=== PATIENT | female | born 1945 ===

== ENCOUNTER 2024-08-13 12:48 | Outpatient (CLI) | payer MEDICARE, SELFPAY ==
--- OUTSIDE RECORDS SUMMARY | 2024-08-13 13:41 | XMS_ITS | Referral Summary ---
Author Organization [facility] Address [address] [place] [id number] Care Team Providers Care Office Automation Technician Name Role Phone Ely Santo MD Primary Care Provider [phone] Encounters Date Type Department Care Team Description 08/10/2024 10:50 AM CDT Lab [facility] [address] [place] [address] Arrived 07/31/2024 Orders Only [facility] [address] [place] [id number] Gina German PA 07/30/2024 1:05 PM CDT Lab [facility] [address] [place] [address] 07/27/2024 Orders Only [facility] [address] [place] [address] Ely Santo MD 06/06/2024 Orders Only [facility] [address] [place] [address] Ely Santo MD from Last 3 Months Social History Tobacco Use Types Packs/Day Years Used Date Smoking Tobacco: Never Assessed Personal Safety Answer Date Recorded Getting School Help Needed Not on file 05/13 Comments Unknown Sex and Gender Information Value Date Recorded Sex Assigned at Not on file 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 Gender Identity Not on file Sexual Orientation Not on file Last Filed Vital Signs Vital Sign Reading Time Taken Comments Blood Pressure 110/62 12/10/2015 9:00 AM CDT Pulse 56 12/09/2016 1:45 PM CDT Temperature - - Respiratory Rate - - Oxygen Saturation 98% 12/09/2016 1:45 PM CDT Inhaled Oxygen Concentration - - Weight 74.4 kg (164 lb) 12/09/2016 1:45 PM CDT Height 162.6 cm (5' 4) 12/09/2016 1:45 PM CDT Body Mass Index 28.15 12/09/2016 1:45 PM CDT Plan of Treatment Not on file Procedures Procedure Name Priority Date/Time Associated Diagnosis Comments EGFR Routine 08/10/2024 11:22 AM CDT HEMOGLOBIN A1C Routine 08/10/2024 11:22 AM CDT VITAMIN B12 Routine 08/10/2024 11:22 AM CDT LIPID PANEL Routine 08/10/2024 11:22 AM CDT COMPREHENSIVE METABOLIC PANEL Routine 08/10/2024 11:22 AM CDT DIFFERENTIAL AUTO Routine 07/30/2024 1:3 0 PM CDT FERRITIN Routine 07/30/2024 1:30 PM CDT IRON PROFILE W/ IBC Routine 07/30/2024 1 :30 PM CDT FOLATE Routine 07/30/2024 1:30 PM CDT VITAMIN B12 Routine 07/30/2024 1:30 PM CDT CBC WITH AUTO DIFFERENTIAL Routine 07/30/2024 1:30 PM CDT from Last 3 Months Results * (ABNORMAL) eGFR (08/10/2024 11:22 AM CDT) eGFR 49(L) >=60 mL/min/1. 73 m2 Comment: Interpretive Data Reference Interval Normal >/= 90 mL/min/1.73m2 Mildly decreased* 60 - 89 mL/min/1.73m2 Mildly to moderately decreased 45 - 59 mL/min/1.73m2 Moderately to severely decreased 30 - 44 mL/min/1.73m2 Severely decreased 15 - 29 mL/min/1.73m2 Kidney Failure < 15 mL/min/1.73m2 *Relative to young adult level Estimated glomerular filtration rate is determined by the 2020 CKD-EPI equation recommended by the National Kidney Foundation (A Unifying Approach to GFR Estimation: Recommendations of the NKF-ASK Task Force on Reassessing the Inclusion of Race in Diagnosing Kidney Disease, JASN 2020). The CKD-EPI equation should not be used for patients with unstable renal function and has not been validated in children and those over 70. Current interpretive data was last reviewed 2020. Blood 08/10/2024 11:2 2 AM CDT 08/10/2024 11:40 AM CDT Gina DIXON LAB BLOOD ORDERABLES Final Resul t Performing Organization Address [facility] de Phone Number [address] [place] [place] [address] * (ABNORMAL) Hemoglobin A1c (08/10/2024 11:22 AM CDT) [facility] Hgb A1C 5.9(H) 4.0 - 5.6 % Estimated Average Glucose 123 mg/dL [facility] Comment: The ADA recommends reporting an estimated Average Glucose (eAG) with all Hemoglobin A1c results using the equation derived from a study of 507 normal and diabetic adults. Minority populations were underrepresented and children were not included. (Diabetes Care 31:3569-1596, 2008). The eAG is not equivalent to a fasting glucose. Blood 08/10/2024 11:2 2 AM CDT 08/10/2024 11:40 AM CDT Gina DIXON LAB BLOOD ORDERABLES Final Resul t Performing Organization Address [facility] Co de Phone Number [address] [place] [address] * Vitamin B12 (08/10/2024 11:22 AM CDT) Vitamin B12 640 230 - 1,250 pg/mL Blood 08/10/2024 11:2 2 AM CDT 08/10/2024 11:40 AM CDT us Gina DIXON LAB BLOOD ORDERABLES Final Resul t [facility] [address] [facility] [place] [address] * Lipid panel (08/10/2024 11:22 AM CDT) Cholesterol 138 30 - 199 mg/dL Comment: Interpretive Data Ages < or = 19 years Acceptable: <170 mg/dL Borderline high: 170-199 mg/dL High: >or= 200 mg/dL Ages > or = 20 years Desirable: <200 mg/dL Borderline high: 200-239 mg/dL High: >or= 240 mg/dL Literature References: 1. Expert Panel on Integrated Guidelines for Cardiovascular Health and Risk Reduction in Children and Adolescents. Pediatrics 2011;128:S213 2. NCEP Expert Panel. Circulation 2004;110:227 Current Interpretive Data was last revised on 2017. Triglycerides 82 <=149 mg/dL [facility] Comment: Interpretive Data Ages < or = 9 years Acceptable: <75 mg/dL Borderline high: 75-99 mg/dL High: >or= 100 mg/dL Ages 10 to 20 years Acceptable: <90 mg/dL Borderline high: 90-129 mg/dL High: >or= 130 mg/dL Ages > or = 20 years Desirable: <150 mg/dL Borderline high: 150-199 mg/dL High: 200-499 mg/dL Very high: >or= 499 mg/dL Literature References: 1. Expert Panel on Integrated Guidelines for Cardiovascular Health and Risk Reduction in Children and Adolescents. Pediatrics 2011;128:S213 2. NCEP Expert Panel. Circulation 2004;110:227 Current Interpretive Data was last revised on 2017. HDL 52 >=40 mg/dL [facility] MONROY Comment: Interpretive Data Ages < or = 19 years Acceptable: >45 mg/dL Borderline low: 40-45 mg/dL Low: <40 mg/dL Ages > or = 20 years Desirable: >or= 60 mg/dL Low: <40 mg/dL Literature References: 1. Expert Panel on Integrated Guidelines for Cardiovascular Health and Risk Reduction in Children and Adolescents. Pediatrics 2011;128:S213 2. NCEP Expert Panel. Circulation 2004;110:227 Current Interpretive Data was last revised on 2017. LDL, calculated 70 <=129 mg/dL [facility] MONROY Comment: Interpretive Data Ages < or = 19 years Acceptable: <110 mg/dL Borderline high: 110-129 mg/dL High: >or= 130 mg/dL Ages > or = 20 years Optimal: <100 mg/dL Near optimal: 100-129 mg/dL Borderline high: 130-159 mg/dL High: >160 mg/dL Calculated using the Agusto LDL-C estimating equation. This equation was implemented on 2023. Prior to this date LDL-C was estimated using the Friedewald equation. Literature References: 1. Expert Panel on Integrated Guidelines for Cardiovascular Health and Risk Reduction in Children and Adolescents. Pediatrics 2011;128:S213 2. NCEP Expert Panel. Circulation 2004;110:227 3. Agusto Cortez al. TOMASA Cardiol. 2019June 28;5(5):540-548. doi: 10.1001/jamacardio.2020.0013 Current Interpretive Data was last revised on 2023. Non-HDL Cholesterol 86 mg/dL [facility] MONROY Comment: Interpretive Data Ages < or = 19 years Acceptable: <120 mg/dL Borderline high: 120-144 mg/dL High: >145 mg/dL Ages > or = 20 years When triglycerides are >200 mg/dL, Non-HDL cholesterol is a secondary target of therapy with treatment goals that are 30 mg/dL greater than the LDL cholesterol target. Literature References: 1. Expert Panel on Integrated Guidelines for Cardiovascular Health and Risk Reduction in Children and Adolescents. Pediatrics 2011;128:S213 2. NCEP Expert Panel. Circulation 2004;110:227 Current Interpretive Data was last revised on 2017. Chol/HDL ratio 3 [facility]LIN MONROY Blood 08/10/2024 11:2 2 AM CDT 08/10/2024 11:40 AM CDT Gina DIXON LAB BLOOD ORDERABLES Final Resul t Performing Organization Address City/State/[facility] Co de Phone Number [facility] [address] [facility] [employer] [place] [address] * (ABNORMAL) Comprehensive metabolic panel (08/10/2024 11:22 AM CDT) Sodium 140 135 - 145 mmol/L Potassium, pl 4.5 3.3 - 4.9 mmol/L [facility] Chloride 106 97 - 110 mmol/L [facility] CO2 20(L) 22 - 32 mmol/L [facility] Anion gap 14 2 - 15 mmol/L [facility] BUN 23 6 - 25 mg/dL [facility] Creatinine 1.15(H) 0.60 - 1.10 mg/dL [facility] Glucose 98 70 - 199 mg/dL [facility] Comment: Interpretive Data Fasting glucose >/= 126 mg/dl is diagnostic for diabetes. Fasting is defined as no caloric intake for at least 8 hours. Fasting glucose between 100 mg/dl to 125 mg/dl is diagnostic of prediabetes. In a patient with classic symptoms of hyperglycemia or hyperglycemic crisis, a random glucose >/= 200 mg/dl is diagnostic for diabetes. In the absence of unequivocal hyperglycemia, results should be confirmed by repeat testing. The classification and Diagnosis of Diabetes Diabetes Care 202; 46: S19-S40. Current interpretive data was last revised 2022. Calcium 9.5 8.5 - 10.3 mg/dL [facility] Bilirubin, total 0.6 0.1 - 1.2 mg/dL [facility] Protein, pl 6.9 6.5 - 8.5 g/dL [facility] Albumin 4.1 3.5 - 5.0 g/dL [facility] Alk phos 93 40 - 130 Units/L [facility] ALT 22 7 - 45 Units/L [facility] AST 29 10 - 45 Units/L [facility] Blood 08/10/2024 11:2 2 AM CDT 08/10/2024 11:40 AM CDT us Gina DIXON LAB BLOOD ORDERABLES Final Resul t Performing Organization Address [facility]/ZIP Co de Phone Number [facility] [address] [facility] [employer] [place] [address] * (ABNORMAL) Differential, auto (07/30/2024 1:30 PM CDT) Neutrophil abs 7.71(H) 1.50 - 6.50 K/cumm Imm gran abs 0.04 0.00 - 0.10 K/cumm [facility] Lymphocyte abs 2.57 0.80 - 3.30 K/cumm [facility] Monocyte abs 0.72 0.20 - 0.80 K/cumm [facility] Eosinophil abs 0.15 0.00 - 0.50 K/cumm [facility] Basophil abs 0.07 0.00 - 0.10 K/cumm [facility] Neutrophil pct 68.5 % [facility] Comment: Interpretive Data Percent cell count reference ranges are not reported, since discordance with absolute values may lead to misinterpretation of CBC data. Current Interpretive Data was last revised on 2017. Imm gran pct 0.4 % [facility] Comment: Interpretive Data Percent cell count reference ranges are not reported, since discordance with absolute values may lead to misinterpretation of CBC data. Current Interpretive Data was last revised on 2017. Lymphocyte pct 22.8 % [facility] Comment: Interpretive Data Percent cell count reference ranges are not reported, since discordance with absolute values may lead to misinterpretation of CBC data. Current Interpretive Data was last revised on 2017. Monocyte pct 6.4 % [facility] Comment: Interpretive Data Percent cell count reference ranges are not reported, since discordance with absolute values may lead to misinterpretation of CBC data. Current Interpretive Data was last revised on 2017. Eosinophil pct 1.3 % [facility] Comment: Interpretive Data Percent cell count reference ranges are not reported, since discordance with absolute values may lead to misinterpretation of CBC data. Current Interpretive Data was last revised on 2017. Basophil pct 0.6 % [facility] Comment: Interpretive Data Percent cell count reference ranges are not reported, since discordance with absolute values may lead to misinterpretation of CBC data. Current Interpretive Data was last revised on 2017. Blood 07/30/2024 1:30 PM CDT 07/30/2024 1:59 PM CDT Ely Santo MD LAB BLOOD ORDERABLES Final Resul t Performing Organization Address City/[facility]/ZIP Co de Phone Number [address] [place] [address] * Iron profile w/ IBC (07/30/2024 1:30 PM CDT) Pathologist [facility] Iron 83 35 - 145 mcg/dL TIBC 303 250 - 400 mcg/dL [facility] Transferrin saturation 27 20 - 50 % [facility] Blood 07/30/2024 1:30 PM CDT 07/30/2024 1:59 PM CDT Ely Santo MD LAB BLOOD ORDERABLES Final Resul t Performing Organization Address [facility] de Phone Number [address] [place] [address] * (ABNORMAL) CBC with auto differential (07/30/2024 1:30 PM CDT) Pathologist [facility] WBC 11.26(H) 3.80 - 9.90 K/cumm Hgb 10.5(L) 11.9 - 15.5 g/dL [facility] Hct 32.4(L) 35.6 - 45.5 % [facility] Plt 207 150 - 400 K/cumm [facility] MPV 11.5 9.1 - 12.3 fL [facility] RBC 3.51(L) 3.90 - 5.20 M/cumm [facility] MCV 92.3 81.3 - 96.4 fL [facility] MCH 29.9 27.1 - 33.3 pg [facility] MCHC 32.4 32.3 - 35.7 g/dL [facility] RDW CV 14.5 11.1 - 14.9 % [facility] RDW SD 48.7(H) 35.7 - 48.1 fL [facility] NRBC abs 0.00 0.00 - 0.01 K/cumm [facility] Blood 07/30/2024 1:30 PM CDT 07/30/2024 1:59 PM CDT Ely Santo MD LAB BLOOD ORDERABLES Final Resul t Performing Organization Address City/[facility] Co de Phone Number [address] [place] [address] * Folate (07/30/2024 1:30 PM CDT) Folic acid >20.0 >=5.0 ng/mL Blood 07/30/2024 1:30 PM CDT 07/30/2024 1:59 PM CDT Ely Santo MD LAB BLOOD ORDERABLES Final Resul t Performing Organization Address [facility] de Phone Number [address] [place] [address] * (ABNORMAL) Ferritin (07/30/2024 1:30 PM CDT) Ferritin 444(H) 15 - 150 ng/mL Blood 07/30/2024 1:30 PM CDT 07/30/2024 1:59 PM CDT Result [facility] Ely Santo MD LAB BLOOD ORDERABLES Final Resul t Performing Organization Address [facility] Co de Phone Number [address] [place] [address] * Vitamin B12 (07/30/2024 1:30 PM CDT) Vitamin B12 713 230 - 1,250 pg/mL Blood 07/30/2024 1:30 PM CDT 07/30/2024 1:59 PM CDT Ely Santo MD LAB BLOOD ORDERABLES Final Resul t Performing Organization Address City/[facility] Co de Phone Number [address] [place] [address] from Last 3 Months [facility] Care [facility] Office Automation Technician Relationship Specialty Start Date End Date Ely Santo MD [address] [phone] PCP - General 05/16/20
--- OUTSIDE RECORDS SUMMARY | 2024-08-13 13:41 | XMS_ITS | Encounter Summary ---
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 Historical Provider [facility] Final Result documented in this encounter Visit Diagnoses Not on filedocumented in this encounter Care Teams Stave Block Roller Relationship Specialty Start Date End Date Ely Santo MD [address] [place] [address] PCP - General 05/16/20 documented as of this encounter
--- OUTSIDE RECORDS SUMMARY | 2024-08-13 13:41 | XMS_ITS | Clinical Summary ---
Author Organization [facility] Address [address] [place] [id number] Care Team Providers Care Planting Material Remover Name Role Phone Ely Santo MD Primary Care Provider [phone] Encounters Date Type Department Care Team Description 08/10/2024 10:[address] [facility] [address] [place] [id number] Arrived 07/31/[address] [facility] [address] [place] [id number] Gina German PA 07/30/2024 1:[address] [facility] [address] [place] [id number] 07/27/[address] [facility] [address] [place] [id number] Ely Santo MD 06/06/[address] 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 Minority populations were underrepresented and children were not included. (Diabetes Care 31:2070-8167, 2008). The eAG is not equivalent to a fasting glucose. Blood 08/10/2024 11:2 2 AM CDT 08/10/2024 11:40 AM CDT Gina DIXON LAB BLOOD ORDERABLES Final Resul t Performing Organization Address [facility] Co de Phone Number [address] [place] [address] * Vitamin B12 (08/10/2024 11:22 AM CDT) Vitamin B12 640 230 - 1,250 pg/mL Blood 08/10/2024 11:2 2 AM CDT 08/10/2024 11:40 AM CDT us Gina DIXON LAB BLOOD ORDERABLES Final Resul t [facility] [address] [facility] [place] [address] * Lipid panel (08/10/2024 11:22 AM CDT) [...] ORDERABLES Final Resul t Performing Organization Address City/State/[facility] Co de Phone Number [facility] [address] [facility] [place] [place] [address] * (ABNORMAL) Comprehensive metabolic panel (08/10/2024 11:22 AM CDT) Sodium 140 135 - 145 mmol/L Potassium, pl 4.5 3.3 - 4.9 mmol/L [facility] Chloride 106 97 - 110 mmol/L [facility] CO2 20(L) 22 - 32 mmol/L [facility] Anion gap 14 2 - 15 mmol/L [facility] BUN 23 6 - 25 mg/dL [facility] Creatinine 1.15(H) 0.60 - 1.10 mg/dL [facility] Glucose 98 70 - 199 mg/dL [facility] Comment: Interpretive Data Fasting glucose >/= 126 [...] 2022. Calcium 9.5 8.5 - 10.3 mg/dL [facility] Bilirubin, total 0.6 0.1 - 1.2 mg/dL [facility] Protein, pl 6.9 6.5 - 8.5 g/dL [facility] Albumin 4.1 3.5 - 5.0 g/dL [facility] Alk phos 93 40 - 130 Units/L [facility] ALT 22 7 - 45 Units/L [facility] AST 29 10 - 45 Units/L [facility] Blood 08/10/2024 11:2 2 AM CDT 08/10/2024 11:40 AM CDT us Gina DIXON LAB BLOOD ORDERABLES Final Resul t Performing Organization Address [facility]/ZIP Co de Phone Number [facility] [address] [facility] [place] [place] [address] * (ABNORMAL) Differential, auto (07/30/2024 1:30 PM CDT) Neutrophil abs 7.71(H) 1.50 - 6.50 K/cumm Imm gran abs 0.04 0.00 - 0.10 K/cumm [facility] Lymphocyte abs 2.57 0.80 - 3.30 K/cumm [facility] Monocyte abs 0.72 0.20 - 0.80 K/cumm [facility] Eosinophil abs 0.15 0.00 - 0.50 K/cumm [facility] Basophil abs 0.07 0.00 - 0.10 K/cumm [facility] Neutrophil pct 68.5 % [facility] Comment: Interpretive Data Percent cell count reference ranges are not reported, since discordance with absolute values may lead to misinterpretation of CBC data. Current Interpretive Data was last revised on 2017. Imm gran pct 0.4 % [facility] Comment: Interpretive Data Percent cell count reference ranges are not reported, since discordance with absolute values may lead to misinterpretation of CBC data. Current Interpretive Data was last revised on 2017. Lymphocyte pct 22.8 % [facility] Comment: Interpretive Data Percent cell count reference ranges are not reported, since discordance with absolute values may lead to misinterpretation of CBC data. Current Interpretive Data was last revised on 2017. Monocyte pct 6.4 % [facility] Comment: Interpretive Data Percent cell count reference ranges are not reported, since discordance with absolute values may lead to misinterpretation of CBC data. Current Interpretive Data was last revised on 2017. Eosinophil pct 1.3 % [facility] Comment: Interpretive Data Percent cell count reference ranges are not reported, since discordance with absolute values may lead to misinterpretation of CBC data. Current Interpretive Data was last revised on 2017. Basophil pct 0.6 % [facility] Comment: Interpretive Data Percent cell count reference ranges are not reported, since discordance with absolute values may lead to misinterpretation of CBC data. Current Interpretive Data was last revised on 2017. Blood 07/30/2024 1:30 PM CDT 07/30/2024 1:59 PM CDT Ely Santo MD LAB BLOOD ORDERABLES Final Resul t Performing Organization Address City/[facility]/ZIP Co de Phone Number [address] [place] [address] * Iron profile w/ IBC (07/30/2024 1:30 PM CDT) Pathologist [facility] Iron 83 35 - 145 mcg/dL TIBC 303 250 - 400 mcg/dL [facility] Transferrin saturation 27 20 - 50 % [facility] Blood 07/30/2024 1:30 PM CDT 07/30/2024 1:59 PM CDT Ely Santo MD LAB BLOOD ORDERABLES Final Resul t Performing Organization Address [facility] de Phone Number [address] [place] [address] * (ABNORMAL) CBC with auto differential (07/30/2024 1:30 PM CDT) Pathologist [facility] WBC 11.26(H) 3.80 - 9.90 K/cumm Hgb 10.5(L) 11.9 - 15.5 g/dL [facility] Hct 32.4(L) 35.6 - 45.5 % [facility] Plt 207 150 - 400 K/cumm [facility] MPV 11.5 9.1 - 12.3 fL [facility] RBC 3.51(L) 3.90 - 5.20 M/cumm [facility] MCV 92.3 81.3 - 96.4 fL [facility] MCH 29.9 27.1 - 33.3 pg [facility] MCHC 32.4 32.3 - 35.7 g/dL [facility] RDW CV 14.5 11.1 - 14.9 % [facility] RDW SD 48.7(H) 35.7 - 48.1 fL [facility] NRBC abs 0.00 0.00 - 0.01 K/cumm [facility] Blood 07/30/2024 1:30 PM CDT 07/30/2024 1:59 PM CDT Ely Santo MD LAB BLOOD ORDERABLES Final Resul t Performing Organization Address City/[facility] Co de Phone Number [address] [place] [address] * Folate (07/30/2024 1:30 PM CDT) Folic acid >20.0 >=5.0 ng/mL Blood 07/30/2024 1:30 PM CDT 07/30/2024 1:59 PM CDT Ely Santo MD LAB BLOOD ORDERABLES Final Resul t Performing Organization Address [facility] de Phone Number [address] [place] [address] * (ABNORMAL) Ferritin (07/30/2024 1:30 PM CDT) Ferritin 444(H) 15 - 150 ng/mL Blood 07/30/2024 1:30 PM CDT 07/30/2024 1:59 PM CDT Result [facility] Ely Santo MD LAB BLOOD ORDERABLES Final Resul t Performing Organization Address [facility] Co de Phone Number [address] [place] [address] * Vitamin B12 (07/30/2024 1:30 PM CDT) Vitamin B12 713 230 - 1,250 pg/mL Blood 07/30/2024 1:30 PM CDT 07/30/2024 1:59 PM CDT Ely Santo MD LAB BLOOD ORDERABLES Final Resul t Performing Organization Address City/[facility] Co de Phone Number [address] [place] [address] from Last 3 Months Insurance [facility] [facility] Care Teams Planting Material Remover Relationship Specialty Start Date End Date Ely Santo MD [address] [id number] PCP - General 05/16/20
--- OUTSIDE RECORDS SUMMARY | 2024-08-13 13:41 | XMS_ITS | Data Portability ---
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 Plan of Treatment Reminders Order Date Submit Date Provider Last Modified By Organization Details Last Modified Time Details Appointments ANY 15 2024 02:30P Davon Butler MD Not available Not available Not available MEDICARE WELLNESS VISIT 2024 10:30A Davon Butler MD Not available Not available Not available Lab hemoglob in A1c, QN, blood 2024 025 [facility] [place], [address], 07/31/2024 11:45:25 lipid panel, serum 2024 025 [facility] (Outpatient Labs), [place], [address], 07/31/2024 11:45:26 urinalys is complete , reflex culture 2024 025 [facility] (Outpatient Labs), [place], [address], 07/31/2024 11:45:26 fecal occult blood, immunoas say, stool 2024 025 [facility] (Outpatient [facility]), [place], [address], 07/31/2024 11:45:26 vitamin B12 + folate, serum or blood 2024 025 [facility] (Outpatient Labs), [address] [place] [address] , [place], [address], 07/31/2024 11:45:26 CMP, serum or plasma 2024 025 [facility] (Outpatient Labs), [address] [place] [address] , [place], [address], 08/10/2024 14:03:54 CBC w/ auto diff 2024 025 [facility], [address], [place], [address], 06/09/2024 04:17:59 vitamin B12 + folate, serum or blood 2024 025 [facility], [address], [address], [place], [address], 06/09/2024 04:18:00 iron + TIBC + ferritin , serum 2024 025 [facility], [address], [address], [place], [address], 06/09/2024 04:17:57 HbA1c (hemoglo bin A1c), blood 2023 024 [facility], [address], [place], [address], 02/17/2024 09:12:15 lipid panel, serum 2023 024 [facility], [address] [facility] [address], [place], [address], 02/17/2024 09:12:12 CMP, serum or plasma 2023 024 [facility], [address], [place], [address], 02/17/2024 09:12:14 CBC 2023 024 [facility], [address], [address], [place], [address], 02/17/2024 09:12:16 CMP, serum or plasma 2023 024 [facility], [address] [place] [address] [place], [address], 02/16/2024 13:11:32 CBC 2023 024 [facility], [address] [place] [address] [place], [address], 02/16/2024 13:11:32 lipid panel, serum 2023 024 [facility] (Outpatient Labs), [address] [place] [address] [place], [address], 07/28/2023 09:56:23 lipid panel, serum 2023 024 [facility], [address] [place] [address] [place], [address], 02/16/2024 13:11:[address] referral 2024 025 [facility], [address], [place], [address], 08/03/2024 11:17:01 oral surgery/ dentist referral 2024 025 [facility], [address] [facility], [address], [place], [address], 08/01/2024 11:17:[address] referral 2024 025 roverto Guadalupe MD, [address], [place], [address], 08/01/2024 11:17:28 audiolog ist referral 2024 025 [facility] (Audiology), [address], [place], [address], 08/01/2024 11:17:28 Procedures None recorded . Surgeries None recorded . Imaging None recorded . Medication Orders alprazol am 0.25 mg tablet 2024 025 [facility] 1418, [address], [address], 08/07/2024 05:02:15 ramipril 10 mg capsule 2024 025 [facility] 1418, [address], [address], 03/14/2024 11:55:30 Patient TargetsNo targets recorded. 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 Referral for Anemia Referring Physician: [facility], Encounter Date: 07/31/2024 Black Belt Referral for Hea ring difficulty Referring Physician: [facility], Encounter Date: 07/31/2024 Oral Surgery/dentist Referra l for Anomaly of tooth position Referring Physician: [facility], Encounter Date: 07/31/2024 Bridge Painter Referral for Nail deformity Referring Physician: Gina German [facility], Encounter Date: 07/31/2024 Results Created Date Observation Date Name Description Value Unit Range Abnormal Flag Note LastModifiedBy Organization Detail LastModifiedTime 02/16/20 24 02/17/2024 LIPID PANEL cholesterol, total 189 mg/dL 100-19 9 Not Available [facility] ([facility]) [address] [place], [address], 02/17/2024 09:12:12 02/16/20 24 02/17/2024 LIPID PANEL triglyceride s 61 mg/dL 0-149 Not Available [facility] ([facility]) [address] [place], [address], 02/17/2024 09:12:12 02/16/20 24 02/17/2024 LIPID PANEL HDL cholesterol 58 mg/dL >39 Not Available [facility] ([facility]) [address] [place], [address], 02/17/2024 09:12:12 02/16/20 24 02/17/2024 LIPID PANEL VLDL cholesterol dale 11 mg/dL 5-40 Not Available [facility] ([facility]) [address] [place], [address], 02/17/2024 09:12:12 02/16/20 24 02/17/2024 LIPID PANEL LDL chol calc ([facility]) 120 mg/dL 0-99 above high normal Not Available [facility] ([facility]) [address] [place], [address], 02/17/2024 09:12:12 02/16/20 24 02/17/2024 COMP. METAB OLIC PANEL (14) glucose 87 mg/dL 70-99 Not Available [facility] ([facility]) [address] [place], [address], 02/17/2024 09:12:13 02/16/20 24 02/17/2024 COMP. METAB OLIC PANEL (14) BUN 15 mg/dL 8-27 Not Available [facility] ([facility]) [address] [facility], [place], [address], 02/17/2024 09:12:13 02/16/20 24 02/17/2024 COMP. METAB OLIC PANEL (14) creatinine 0.96 mg/dL 0.57-1 .00 Not Available [facility] ([facility]) [address] [facility], [place], [address], 02/17/2024 09:12:13 02/16/20 24 02/17/2024 COMP. METAB OLIC PANEL (14) eGFR 61 mL/mi n/1.7 3 >59 Not Available [facility] ([facility]) [address] [facility], [place], [address], 02/17/2024 09:12:13 02/16/20 24 02/17/2024 COMP. METAB OLIC PANEL (14) BUN/creatini ne ratio 16 12-28 Not Available [facility] ([facility]) [address] [facility], [place], [address], 02/17/2024 09:12:13 02/16/20 24 02/17/2024 COMP. METAB OLIC PANEL (14) sodium 142 mmol/ L 134-14 4 Not Available [facility] ([facility]) [address] [facility], [place], [address], 02/17/2024 09:12:13 02/16/20 24 02/17/2024 COMP. METAB OLIC PANEL (14) potassium 4.0 mmol/ L 3.5-5. 2 Not Available [facility] ([facility]) [address] [facility], [place], [address], 02/17/2024 09:12:13 02/16/20 24 02/17/2024 COMP. METAB OLIC PANEL (14) chloride 105 mmol/ L 96-106 Not Available [facility] ([facility]) [address] [facility] [place], [address], 02/17/2024 09:12:13 02/16/20 24 02/17/2024 COMP. METAB OLIC PANEL (14) carbon dioxide, total 23 mmol/ L 20-29 Not Available [facility] ([facility]) [address] [facility] [place], [address], 02/17/2024 09:12:13 02/16/20 24 02/17/2024 COMP. METAB OLIC PANEL (14) calcium 9.6 mg/dL 8.7-10 .3 Not Available [facility] ([facility]) [address] [facility] [place], [address], 02/17/2024 09:12:13 02/16/20 24 02/17/2024 COMP. METAB OLIC PANEL (14) protein, total 6.3 g/dL 6.0-8. 5 Not Available [facility] ([facility]) [address] [facility] [place], [address], 02/17/2024 09:12:13 02/16/20 24 02/17/2024 COMP. METAB OLIC PANEL (14) albumin 4.0 g/dL 3.8-4. 8 Not Available [facility] ([facility]) [address] [facility] [place], [address], 02/17/2024 09:12:13 02/16/20 24 02/17/2024 COMP. METAB OLIC PANEL (14) globulin, total 2.3 g/dL 1.5-4. 5 Not Available [facility] ([facility]) [address] [facility] [place], [address], 02/17/2024 09:12:13 02/16/20 24 02/17/2024 COMP. METAB OLIC PANEL (14) bilirubin, total 0.6 mg/dL 0.0-1. 2 Not Available [facility] ([facility]) [address] [facility], [place], [address], 02/17/2024 09:12:13 02/16/20 24 02/17/2024 COMP. METAB OLIC PANEL (14) alkaline phosphatase 92 IU/L 44-121 Not Available [facility] ([facility]) [address] [place], [address], 02/17/2024 09:12:13 02/16/20 24 02/17/2024 COMP. METAB OLIC PANEL (14) AST (SGOT) 22 IU/L 0-40 Not Available [facility] ([facility]) [address] [facility], [place], [address], 02/17/2024 09:12:13 02/16/20 24 02/17/2024 COMP. METAB OLIC PANEL (14) ALT (SGPT) 12 IU/L 0-32 Not Available [facility] ([facility]) [address] [facility], [place], [address], 02/17/2024 09:12:13 02/16/20 24 02/17/2024 HEMOG LOBIN A1C hemoglobin A1C 5.9 % 4.8-5. 6 above high normal Predi abete s: 5.7 - 6.4 Diabe frank: >6.4 Glyce eileen contr ol for adult s with diabe frank: <7.0 Not Available [facility] ([facility]) [address] [place], [address], 02/17/2024 09:12:15 02/16/20 24 02/17/2024 CBC, PLATE LET, NO DIFFE RENTI AL WBC 6.8 x10e3 /uL 3.4-10 .8 Not Available [facility] ([facility]) [address] [place], [address], 02/17/2024 09:12:16 02/16/20 24 02/17/2024 CBC, PLATE LET, NO DIFFE RENTI AL RBC 3.52 x10e6 /uL 3.77-5 .28 below low normal Not Available [facility] ([facility]) [address] [place], [address], 02/17/2024 09:12:16 02/16/20 24 02/17/2024 CBC, PLATE LET, NO DIFFE RENTI AL hemoglobin 10.8 g/dL 11.1-1 5.9 below low normal Not Available [facility] ([facility]) [address] [place], [address], 02/17/2024 09:12:16 02/16/20 24 02/17/2024 CBC, PLATE LET, NO DIFFE RENTI AL hematocrit 33.0 % 34.0-4 6.6 below low normal Not Available [facility] ([facility]) [address] [place], [address], 02/17/2024 09:12:16 02/16/20 24 02/17/2024 CBC, PLATE LET, NO DIFFE RENTI AL MCV 94 fL 79-97 Not Available [facility] ([facility]) [address] [place], [address], 02/17/2024 09:12:16 02/16/20 24 02/17/2024 CBC, PLATE LET, NO DIFFE RENTI AL MCH 30.7 pg 26.6-3 3.0 Not Available [facility] ([facility]) [address] [place], [address], 02/17/2024 09:12:16 02/16/20 24 02/17/2024 CBC, PLATE LET, NO DIFFE RENTI AL MCHC 32.7 g/dL 31.5-3 5.7 Not Available [facility] ([facility]) [address] [place], [address], 02/17/2024 09:12:16 02/16/20 24 02/17/2024 CBC, PLATE LET, NO DIFFE RENTI AL RDW 13.0 % 11.7-1 5.4 Not Available [facility] ([facility]) [address] [facility], [place], [address], 02/17/2024 09:12:16 02/16/20 24 02/17/2024 CBC, PLATE LET, NO DIFFE RENTI AL platelets 213 x10e3 /uL 150-45 0 Not Available [facility] ([facility]) [address] [facility], [place], [address], 02/17/2024 09:12:16 06/07/19 25 06/09/2024 IRON, TIBC AND MARIANELA TIN PANEL iron, total 79 mcg/d L 45-160 normal Not Available [address], [address], 06/09/2024 04:17:57 06/07/19 25 06/09/2024 IRON, TIBC AND MARIANELA TIN PANEL iron binding capacity 326 mcg/d L_(ca lc) 250-45 0 normal Not Available [address], [address], 06/09/2024 04:17:57 06/07/19 25 06/09/2024 IRON, TIBC AND MARIANELA TIN PANEL % saturation 24 %_(ca lc) 16-45 normal Not Available [address], [address], 06/09/2024 04:17:57 06/07/19 25 06/09/2024 IRON, TIBC AND MARIAENLA TIN PANEL ferritin 216 NG/mL 16-288 normal Not Available [address], [address], 06/09/2024 04:17:57 06/07/19 25 06/09/2024 CBC (INCL UDES DIFF/ PLT) white blood cell count 8.8 thous and/u L 3.8-10 .8 normal Not Available [facility] [address], [address], 06/09/2024 04:17:58 06/07/1906/09/2024 CBC (INCL UDES DIFF/ PLT) red blood cell count 3.60 concepción on/uL 3.80-5 .10 low Not Available [address], [address], 06/09/2024 04:17:58 06/07/19 25 06/09/2024 CBC (INCL UDES DIFF/ PLT) hemoglobin 11.0 g/dL 11.7-1 5.5 low Not Available [address], [address], 06/09/2024 04:17:58 06/07/1906/09/2024 CBC (INCL UDES DIFF/ PLT) hematocrit 34.9 % 35.0-4 5.0 low Not Available [address], [address], 06/09/2024 04:17:58 06/07/1906/09/2024 CBC (INCL UDES DIFF/ PLT) MCV 96.9 fL 80.0-1 00.0 normal Not Available [address], [address], 06/09/2024 04:17:58 06/07/1906/09/2024 CBC (INCL UDES DIFF/ PLT) MCH 30.6 pg 27.0-3 3.0 normal Not Available [facility] [address], [address], 06/09/2024 04:17:58 06/07/1906/09/2024 CBC (INCL UDES DIFF/ PLT) MCHC 31.5 g/dL 32.0-3 6.0 low For adult s, a sligh t decre ase in the calcu lated MCHC value (in the range of 30 to 32 g/dL) is most likel y not clini aiden signi bertin t; lorenzo er, it shoul d be inter prete d with cauti on in corre latio n with other red cell asa eters and the patie nt's clini dale condi tion. Not Available [facility] [address], [address], 06/09/2024 04:17:58 06/07/19 25 06/09/2024 CBC (INCL UDES DIFF/ PLT) RDW 13.1 % 11.0-1 5.0 normal Not Available [facility] [address], [address], 06/09/2024 04:17:58 06/07/19 25 06/09/2024 CBC (INCL UDES DIFF/ PLT) platelet count 206 thous and/u L 140-40 0 normal Not Available [facility] [address], [address], 06/09/2024 04:17:58 06/07/19 25 06/09/2024 CBC (INCL UDES DIFF/ PLT) MPV 12.5 fL 7.5-12 .5 normal Not Available [address], [address], 06/09/2024 04:17:58 06/07/19 25 06/09/2024 CBC (INCL UDES DIFF/ PLT) absolute neutrophils 6274 cells /uL 1500-7 800 normal Not Available [facility] [address], [address], 06/09/2024 04:17:58 06/07/19 25 06/09/2024 CBC (INCL UDES DIFF/ PLT) absolute lymphocytes 1637 cells /uL 850-39 00 normal Not Available [facility] [address], [address], 06/09/2024 04:17:58 06/07/19 25 06/09/2024 CBC (INCL UDES DIFF/ PLT) absolute monocytes 651 cells /uL 200-95 0 normal Not Available [address], [address], 06/09/2024 04:17:58 06/07/19 25 06/09/2024 CBC (INCL UDES DIFF/ PLT) absolute eosinophils 158 cells /uL 15-500 normal Not Available [facility] [address], [address], 06/09/2024 04:17:58 06/07/19 25 06/09/2024 CBC (INCL UDES DIFF/ PLT) absolute basophils 79 cells /uL 0-200 normal Not Available [facility] [address], [address], 06/09/2024 04:17:58 06/07/19 25 06/09/2024 CBC (INCL UDES DIFF/ PLT) neutrophils 71.3 % normal Not Available [facility] [address], [address], 06/09/2024 04:17:58 06/07/19 25 06/09/2024 CBC (INCL UDES DIFF/ PLT) lymphocytes 18.6 % normal Not Available [facility] [address], [address], 06/09/2024 04:17:58 06/07/19 25 06/09/2024 CBC (INCL UDES DIFF/ PLT) monocytes 7.4 % normal Not Available [facility] [address], [address], 06/09/2024 04:17:58 06/07/19 25 06/09/2024 CBC (INCL UDES DIFF/ PLT) eosinophils 1.8 % normal Not Available [facility] [address], [address], 06/09/2024 04:17:58 06/07/19 25 06/09/2024 CBC (INCL UDES DIFF/ PLT) basophils 0.9 % normal Not Available [facility] [place] [address] [place], [address], 06/09/2024 04:17:58 06/07/1906/09/2024 VITAM IN B12/F OLATE , SERUM PANEL vitamin B12 526 pg/mL 200-11 00 normal Not Available [address], [address], 06/09/2024 04:18:00 06/07/1906/09/2024 VITAM IN B12/F OLATE , SERUM PANEL folate, serum 3.0 NG/mL low Refer ence Range Low: <3.4 Borde rline : 3.4-5 .4 Abigail l: >5.4 Not Available [address] , [place], [address], 06/09/2024 04:18:00 Result Notes None recorded. 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 Active 2019 Ely Butler MD Attn: Accounting ,[address] [place], [address] , [place] [facility] 0 14:49:16 Low back pain 411573094 Active 2019 Ely Butler MD Attn: Accounting ,[address] [place], [address] , [place] [facility] 4 08:22:00 Impaired glucose toleranc e 4645345 Active 2023 Ely Butler MD Attn: Accounting ,[address] [place], [address] , [place] - [facility] 4 08:22:08 Type 2 diabetes mellitus without complica tion 178112214 Completed 201204/16/2013 Location : None;Sev erity: Moderate ;Progres s: Stable;A dded By: Ely Butler;Add to Current Problems : NO Not Available [facility] 7 10:38:57 Blood chemistr y outside referenc e range 983752122 Completed 201205/04/2012 Location : None;Sev erity: Moderate ;Progres s: Stable;A dded By: Ely Butler;Add to Current Problems : NO Not Available [facility] 7 10:38:57 Acute sinusiti s 83162834 Completed 201211/16/2012 Location : None;Sev erity: Moderate ;Progres s: Stable;A dded By: Ely Butler;Add to Current Problems : NO Not Available [facility] 7 10:38:57 Screenin g for osteopor osis Completed 201211/16/2012 Location : None;Sev erity: Moderate ;Progres s: Stable;A dded By: Ely Butler;Add to Current Problems : NO Not Available [facility] 7 10:38:57 Screenin g mammogra phy Completed 201211/16/2012 Location : None;Sev erity: Moderate ;Progres s: Stable;A dded By: Ely Butler;Add to Current Problems : NO Not Available [facility] 7 10:38:57 Acute bronchit is 73378126 Completed 201506/14/2015 Location : None;Sev erity: Moderate ;Progres s: Stable;A dded By: Ely Butler;Add to Current Problems : YES Not Available [facility] 7 10:38:57 Slow transit constipa tion 46316212 Completed 201104/16/2014 Location : None;Sev erity: Moderate ;Progres s: Stable;A dded By: Fatuma Carvajal;Add to Current Problems : NO Not Available [facility] 7 10:38:57 Hemorrho ids [id number] Completed 201104/16/2014 Location : None;Sev erity: Moderate ;Progres s: Stable;A dded By: Fatuma Carvajal;Add to Current Problems : NO Not Available [facility] 7 10:38:57 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 Active 2011 Location : None;Sev erity: Moderate ;Progres s: Stable;A dded By: Fatuma Carvajal;Add to Current Problems : NO Not Available [facility] 7 10:38:57 Type 2 diabetes mellitus without complica tion 649283285 Completed 201204/16/2013 Location : None;Sev erity: Moderate ;Progres s: Stable;A dded By: Eve Lema;Add to Current Problems : NO Not Available [facility] 7 10:38:57 Cough 55538558 Completed 201211/16/2012 Location : None;Sev erity: Moderate ;Progres s: Stable;A dded By: Eve Lema;Add to Current Problems : NO Not Available [facility] 7 10:38:57 Essentia l hyperten corazon 95356550 Active 2014 Location : None;Sev erity: Moderate ;Progres s: Stable;A dded By: Nisha Duong; Add to Current Problems : YES Not Available [facility] 7 10:38:57 Uncontro lled type 2 diabetes mellitus 599831516 Completed 201310/13/2016 Location : None;Sev erity: Moderate ;Progres s: Stable;A dded By: Nisha Duong; Add to Current Problems : YES Ely Butler MD Attn: Accounting ,[address] [place], [address] , [facility] 14:39:50 Pure hypercho lesterol emia 091158250 Active 2011 Location : None;Sev erity: Moderate ;Progres s: Stable;A dded By: Nisha Duong; Add to Current Problems : YES Not Available [facility] 7 10:38:57 Cerebral infarcti on 189370538 Active 2011 Location : None;Sev erity: Moderate ;Progres s: Stable;A dded By: eDisy Booth i;A dd to Current Problems : YES Not Available [facility] 7 10:38:57 Benign essentia l hyperten corazon 0969518 Completed 201104/16/2014 Location : None;Sev erity: Moderate ;Progres s: Stable;A dded By: Deisy Booth i;A dd to Current Problems : YES Not Available [facility] 7 10:38:57 Problem Notes None recorded. Procedures Surgical History Date Name Laterality Status Provider Name and Address Organization Details Recorded Time 12/30/19 23 Generic Procedure completed Ely Butler MD Attn: Accounting,[address] [place], [address], [facility] 12/29/2022 18:51:15 05/30/19 19 Xcapsl ctrc rmvl cplx wo ecp completed Marino Rodrigues MA DC - [facility] 10/04/2018 11:02:31 Caesarean Section completed Deisy Dean DC - [facility] 04/14/2016 18:12:15 Imaging Results None recorded. Procedure Notes None recorded. Medical Equipment None Reported. Allergies No known drug allergies Medications Name Sig Start Date Stop Date Status Note LastModified by Organization Details LastModified Time latanopros t 0.005 % eye drops once a day 02/15 completed Not Available Not Available Not Available Miralax 17 gram/dose oral powder Dissolve 1 capful(s) in 8 ounces of water and drink daily 2017 active RxNorm : 200900 ;Allow Substi tution : True Not Available Not Available Not Available atorvastat in 40 mg tablet Take 1 po q HS 04/16 completed RxNorm : 474588 ;Allow Substi tution : True Not Available Not Available Not Available metformin 500 mg tablet 1 tablet by mouth BiD 04/16 completed RxNorm : 358185 ;Allow Substi tution : True Not Available Not Available Not Available atorvastat in 80 mg tablet TAKE 1 TABLET BY MOUTH ONCE DAILY IN THE EVENING 2024 active Not Available Not Available Not Avai lable triamcinol one acetonide 0.5 % topical cream APPLY A THIN LAYER TO THE AFFECTED AREA(S) BY TOPICAL ROUTE 2 TIMES PER DAY active Not Available Not Available No t Available ofloxacin 0.3 % eye drops 10/04 completed Not Available Not Available Not Available promethazi ne 6.25 mg-codeine 10 mg/5 mL syrup 2 masking machine feeder PO Q 6hrs prn cough 06/13 completed RxNorm : 631258 ;Allow Substi tution : True Not Available Not Available Not Available chlorthali done 25 mg tablet TAKE 1 TABLET BY MOUTH ONCE DAILY STOP SPIRONOLA CTONE. 12/29 completed Not Available Not Available Not Available triamcinol one acetonide 0.1 % topical cream use sparingly three times a day as needed, do no use on face 06/15 completed RxNorm : 971351 4;Allo w Substi tution : True Not Available Not Available Not Available spironolac tone 25 mg tablet Take 1 tablet by mouth twice daily 06/24 completed Not Available Not Available Not Available simvastati n 40 mg tablet Take 1 tablet(s) by mouth at bedtime 03/01 completed RxNorm : 402209 ;Allow Substi tution : True Not Available Not Available Not Available ketorolac 0.5 % eye drops 12/08 completed Not Available Not Available Not Available Tenoretic 50 50 mg-25 mg tablet Take 1 tablet(s) by mouth daily 06/17 completed RxNorm : 482155 ;Allow Substi tution : True Not Available Not Available Not Available amoxicilli n 875 mg tablet Take 1 tablet(s) by mouth q12h for 10 days 11/25 completed RxNorm : 375204 ;Allow Substi tution : True Not Available Not Available Not Available alprazolam 0.25 mg tablet Take 1 tablet 3 times a day by oral route as needed for 7 days. 08/07 completed Not Available Not Available Not Available Zocor 80 mg tablet Take 1 tablet(s) by mouth at bedtime 04/03 completed RxNorm : 942152 ;Allow Substi tution : True Not Available Not Available Not Available hydrocorti sone 1 % topical cream active Not Available Not Available Not Available ramipril 2.5 mg capsule Take 1 capsule every day by oral route. 07/30 completed Not Available Not Available Not Available metoprolol tartrate 50 mg tablet Take 1 tablet by mouth once daily 2024 active Not Available Not Available Not Avai lable aspirin 81 mg chewable tablet Take 1 tablet po daily 03/14 completed RxNorm : 888938 ;Allow Substi tution : True Not Available Not Available Not Available K-Dur 10 mEq tablet,ext ended release 2 po q am and 1 po q pm 10/16 completed Allow Substi tution : True Not Available Not Available Not Available folic acid 1 mg tablet TAKE 1 TABLET BY MOUTH ONCE DAILY IN THE MORNING active Not Available Not Available No t Available atenolol 50 mg tablet Take 1 tablet every day by oral route. 09/24 completed Not Available Not Available Not Available ramipril 5 mg capsule Take 1 capsule by mouth once daily 03/14 completed Not Available Not Available Not Available spironolac tone 50 mg tablet Take 1 tablet by mouth twice daily 2024 active Not Available Not Available Not Avai lable ramipril 10 mg capsule TAKE 1 CAPSULE BY MOUTH ONCE DAILY active Not Available Not Available No t Available amoxicilli n 875 mg-potassi um clavulanat e 125 mg tablet Take 1 tab po bid with food for 10 days 06/13 completed RxNorm : 030604 ;Allow Substi tution : True Not Available Not Available Not Available ezetimibe 10 mg tablet Take 1 tablet every day by oral route. 2024 active Not Available Not Available Not Avai lable Durezol 0.05 % eye drops 02/15 completed Not Available Not Available Not Available Farxiga 5 mg tablet TAKE 1 TABLET BY MOUTH ONCE DAILY 02/15 completed Not Available Not Available Not Available Vitals Date Recorded Systolic blood pressure Diastolic blood pressure Provider Name and Address Organization Details Last Updated DateTime 03/14/2024 162 mm[Hg] 71 mm[Hg] Ely Butler MD Attn: Accounting,[address] [facility], [place], [address], [facility] 03/14/2024 11:54:00 Date Recorded Body height Oxygen saturation Oxygen saturation in Arterial blood by Pulse oximetry Heart rate Body temperature Systolic blood pressure Diastolic blood pressure Provider Name and Address Organization Details Last Updated DateTime 5 157.48 cm 97 % 97 % 53 /min 97.4 [degF] 187 mm[Hg] 68 mm[Hg] Lauren Rodriguez MA [facility] 5 11:28:53 Date Recorded Body height Body mass index (BMI) Body weight Oxygen saturation Oxygen saturation in Arterial blood by Pulse oximetry Heart rate Body temperature Systolic blood pressure Diastolic blood pressure Provider Name and Address Organization Details Last Updated DateTime 5 157.48 cm 23.6 kg/m2 59346.4 2 g 99 % 99 % 60 /min 97.5 [degF] 119 mm[Hg] 66 mm[Hg] Corazon Sanabria MA [facility] 5 11:29:48 Date Recorded Body height Body mass index (BMI) Body weight Body temperature Oxygen saturation Oxygen saturation in Arterial blood by Pulse oximetry Heart rate Systolic blood pressure Diastolic blood pressure Provider Name and Address Organization Details Last Updated DateTime 4 157.48 cm 26.7 kg/m2 33842.4 9 g 97.7 [degF] 97 % 97 % 85 /min 129 mm[Hg] 71 mm[Hg] Myles Carrillo MA [facility] 4 15:10:42 Date Recorded Body height Body temperature Oxygen saturation Oxygen saturation in Arterial blood by Pulse oximetry Heart rate Systolic blood pressure Diastolic blood pressure Provider Name and Address Organization Details Last Updated DateTime 5 157.48 cm 99 [degF] 98 % 98 % 60 /min 148 mm[Hg] 79 mm[Hg] Myles Carrillo MA [facility] 5 10:25:25 Date Recorded Systolic blood pressure Diastolic blood pressure Provider Name and Address Organization Details Last Updated DateTime 02/16/2024 174 mm[Hg] 72 mm[Hg] Ely Butler MD Attn: Accounting,[address], [place], [address], [place] [facility] 02/16/2024 12:36:41 Date Recorded Body height Body mass index (BMI) Body weight Oxygen saturation Oxygen saturation in Arterial blood by Pulse oximetry Heart rate Body temperature Systolic blood pressure Diastolic blood pressure Provider Name and Address Organization Details Last Updated DateTime 4 157.48 cm 25.8 kg/m2 96623.5 2 g 99 % 99 % 101 /min 98 [degF] 182 mm[Hg] 69 mm[Hg] Lauren Rodriguez MA [place] [facility] 12:12:58 Social History Question Answer Notes LastModified by Organizat ion Details LastModified Time Tobacco Smoking Status Former Smoker Deisy Dean alivia, [place] - [facility] 04/14/2016 13:32:36 Do You Have An Advance Directive? No Information n ot available 06/03/2020 Are You Blind Or Do You Have Difficulty Seeing? No Information n ot available 06/03/2020 What Is Your Level Of Caffeine Consumption? Moderate Information not available 06/03/2020 In The 14 Days Before Symptom Onset, Have You Had Close Contact With A Laboratory-confirm ed COVID-19 While That Case Was Ill? No Information n ot available 06/03/2020 In The 14 Days Before Symptom Onset, Have You Had Close Contact With A Person Who Is Under Investigation For COVID-19 While That Person Was Ill? No Information not available 06/03/2020 Have You Been To An Area Known To Be High Risk For COVID-19? No Information not available 06/03/2020 Are You Deaf Or Do You Have Serious Difficulty Hearing? No Information not available 06/03/2020 What Type Of Diet Are You Following? REGULAR Information n ot available 02/16/2024 What Was The Date Of Your Most Recent Tobacco Screening? 07/31/2024 [email or web address] Information not available 07/31/2024 What Is Your Relationship Status? Information not available 06/03/2020 Do You Use Your Seat Belt Or Car Seat Routinely? Yes Information not available 06/03/2020 Do You Have Smoke And Carbon Monoxide Detectors In Your Home? Yes Information not available 06/03/2020 Are You Passively Exposed To Smoke? No Information no t available 06/03/2020 Do You Use Sunscreen Routinely? Yes Information not available 06/03/2020 Sex: Female Functional Status Question Answer Note LastModified by Organizat ion Details LastModified Time Do you use any illicit or recreational drugs? No Information not available 06/03/2020 What is your level of alcohol consumption? None Information not available 06/03/2020 Are you currently employed? No Information not available 06/03/2020 Are you able to care for yourself? No had a stroke has no use of one of her hands Information not available 06/03/2020 What is your exercise level? None Information not available 02/16/2024 Mental Status Question Answer Note LastModified by Organization D etails LastModified Time Do you feel stressed (tense, restless, nervous, or anxious, or unable to sleep at night)? [id number] Information not available 06/03/2020 Family History Nothing Reported. Medical History Condition Response Other Y High Blood Pressure Y Stroke Y High Cholesterol Y Gynecological History Statement/Question Response Menses Monthly N Obstetrics History GPAL:G 1 P 0 0 0 1 Type Value Living 1 Total 1 Immunizations Vaccine Type Date Status Note Provider Nam e and Address Organization Details Recorded Time COVID-19, mRNA, LNP-S, PF, 30 mcg/0.3 mL dose 1 completed Ely Butler MD Attn: Accounting,[address] [place], [address], [place] [facility] 06/24/2022 13:11:21 COVID-19, mRNA, LNP-S, PF, 30 mcg/0.3 mL dose 1 completed Ely Butler MD Attn: Accounting,[address] [place], [address], [place] [facility] 06/24/2022 13:11:21 COVID-19, mRNA, LNP-S, bivalent, PF, 50 mcg/0.5 mL or 25mcg/0.25 mL dose 2 completed Ely Butler MD Attn: Accounting,[address] [place], [address], [place] [facility] 06/24/2022 13:11:21 COVID-19, mRNA, LNP-S, PF, 30 mcg/0.3 mL dose 1 completed Ely Butler MD Attn: Accounting[address] [place], [address], [place] [facility] 06/24/2022 13:11:21 Pneumococcal conjugate PCV 13 8 completed Not Available [facility] 03/17/2019 02:35:54 Td (adult), 5 Lf tetanus toxoid, preservative free, adsorbed 3 completed TIA Dunham, [place] [facility] 06/25/2022 09:47:42 Tdap 3 completed Not Available [facility] 03/31/2019 02:11:40 pneumococcal polysaccharide PPV23 5 completed Not Available [facility] 03/03/2016 05:46:30 pneumococcal polysaccharide PPV23 2 completed Not Available [facility] 03/03/2016 05:46:30 Td (adult), 2 Lf tetanus toxoid, preservative free, adsorbed 4 completed Ely Butler MD Attn: Accounting,[address] [place], [address], [place] [facility] 06/24/2022 13:11:21 Influenza, high-dose, quadrivalent, PF 3 completed Corazon Sanabria [place], [place] [facility] 12/29/2022 16:04:32 Pneumococcal conjugate PCV20, polysaccharide EBP739 conjugate, adjuvant, PF 3 completed Corazon Sanabria [place], [place] [facility] 12/29/2022 16:04:55 Influenza, high-dose, trivalent, PF 4 completed Lauren Rodriguez [place], [place] [facility] 02/16/2024 14:15:01 Past Encounters Encounter ID Performer Location Encounter Start Date Encounter Closed Date Diagnosis/Indication Diagnosis SNOMED-CT Code Diagnosis ICD10 Code Diagnosis Note [id number] Ely Butler MD [facility] [address] [place] [address] 04/14/2016 12:50:46 04/15/2016 13:36:52 Uncontrolled type 2 diabetes mellitus 772772384 E11.65 follow diet and get some exercise Pure hypercholesterolemia 243998167 E78.00 cont to take this med-- last visit in September you had mistakenly stopped taking Essential hypertension 66332174 I10 low salt diet Long-term drug therapy 573424587 Z79.767 [id number] Ely Butler MD [facility] [address] [place] [address] 10/13/2016 13:52:08 10/13/2016 15:55:42 Pure hypercholesterolemia 209541657 E78.00 cont to take this med Essential hypertension 50672850 I10 low salt diet Uncontroll ed type 2 diabetes mellitus 388400491 E11.65 follow diet and get some exercise 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 046327633 I69.820 Long-term drug therapy 077828586 Z79.899 Screening for malignant neoplasm of breast 865137602 Z12.39 Screening for osteoporosis 160911208 Z13.820 Type 2 tony betes mellitus 91080064 E11.9 [id number] Ely Butler MD [facility] [address] [place] [address] 04/13/2017 14:16:26 04/13/2017 15:19:03 Pure hypercholesterolemia 799209361 E78.00 cont to take this med Essential hypertension 30278071 I10 low salt diet Type 2 tony betes mellitus 65508121 E11.9 Screening for malignant neoplasm of breast 254346818 Z12.39 Chronic constipation 236 773585 K59.09 cont to use OTC-- no RX sent Screening for osteoporosis 441604353 Z13.820 Long-term drug therapy 036139069 Z79.899 Chronic ki dney disease stage 3 890015189 N18.3 [id number] Ely Butler MD [facility] [address] [place] [address] 04/20/2017 11:51:05 04/20/2017 16:35:45 Screening for osteoporosis 058740935 Z13.581 [id number] Ely Butler MD [facility] [address] [place] [address] 10/12/2017 10:47:54 10/13/2017 10:26:21 Type 2 diabetes mellitus 65797684 E11.9 Pure hypercholesterolemia 743213083 E78.00 cont to take this med Essential hypertension 01220562 I10 low salt diet Administra tion of pneumococcal vaccine 89775047 Z23 Long-term drug therapy 957408891 Z79.253 [id number] Ely Butler MD [facility] [address] [place] [address] 04/13/2018 12:17:54 04/14/2018 08:46:36 Type 2 diabetes mellitus 44093721 E11.9 staying away from sugary foods- and once a a year blood work in September-- no refill today is needed Essential hypertension 72396596 I10 low salt diet At [facility] risk for falls 065314873 Z91.81 ruba maldonado PT in the spring-- will call if/ when she would like to set this up Screening for malignant neoplasm of breast 823251852 Z12.39 [id number] Ely Butler MD [facility] [address] [place] [address] 10/04/2018 10:19:14 10/04/2018 12:21:53 Type 2 diabetes mellitus 88069807 E11.9 staying away from sugary foods- and once a a year blood work in September-- no refill today is needed Essential hypertension 77832510 I10 low salt diet Pure hypercholesterolemia 811239832 E78.00 cont to take this med Screening for malignant neoplasm of breast 114701583 Z12.39 [id number] Ely Butler MD [facility] [address] [place] [address] 04/03/2019 10:52:54 04/03/2019 15:35:16 Type 2 diabetes mellitus 65601917 E11.9 staying away from sugary foods- and once a a year blood work in September-- no refill today is needed Pure hypercholesterolemia 558040086 E78.00 cont to take your cholestero l med Essential hypertension 17721614 I10 low salt diet and exercise Long-term drug therapy 724808040 Z79.899 recheck the kidney testing and liver and will need labs a gain in September Anemia 116929382 D64.9 recheck this today Endocrine/ metabolic screening 665013189 Z13.263 [id number] Ely Butler MD [facility] [address] [place] [address] 12/18/2019 09:42:09 12/19/2019 11:59:57 Essential hypertension 96503006 I10 low salt diet and exercise with goal to lose a few of the pounds put on with covid 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 208365619 I69.820 spouse helped wt interview Chronic ki dney disease stage 3 936303814 N18.31 due to COVID will recheck in Mar 2020 Type 2 tony betes mellitus 05653433 E11.9 I encouraged she stay away from sugary foods- no refill today is needed Low back pain 062579837 M54.5 the symptoms sound like lumbar spinal stenosis-- discussed core strengthen ing and lumbar support and to see if XRAY or physical therapy needed going forward-- declined referral today Influenza immunization advised 680506818 Z71.89 to set up this at pharmacy or with nurse at office [id number] Ely Butler MD [facility] [address] [place] [address] 06/03/2020 09:31:47 06/04/2020 14:30:29 Essential hypertension 00682080 I10 low salt diet and exercise with goal to lose a few of the pounds put on with covid Type 2 tony betes mellitus 72880045 E11.9 I encouraged she stay away from sugary foods Chronic ki dney disease stage 3 257621371 N18.31 recheck was done and kidney function is normal April 2020 Pure hypercholesterolemia 059577316 E78.00 cont to take your cholestero l med [id number] Ely Butler MD [facility] [address] [facility] [address] [facility] [place] [address] 12/08/2020 13:09:44 12/09/2020 09:14:26 Type 2 diabetes mellitus 05109529 E11.9 I encouraged she stay away from sugary foodslab recheck is needed Essential hypertension 99920740 I10 low salt diet and exercise with goal to lose a few of the pounds put on with covid Pure hypercholesterolemia 423196319 E78.00 cont to take your cholestero l med Chronic ki dney disease stage 3 672207549 N18.31 recheck was done and kidney function is normal April 2020 Body mass index 30+ - obesity 279026004 Z68.30 [id number] Ely Butler MD [facility] [address] [facility] [address] [facility] [place] [address] 12/24/2021 14:23:51 12/25/2021 10:21:41 Adult health examination 113847451 Z00.00 Health Risk Assessment collected and revieweddi scussed will and advanced care planning Essential hypertension 56740284 I10 low salt diet and exercise-- refill meds but advised to STOP SPIROLOLAC TONE since on 2 diuretics and she has not had CHF Pure hypercholesterolemia 195205116 E78.00 cont to take your cholestero l med-- lab today fasting Type 2 tony betes mellitus 17923706 E11.9 I encouraged she stay away from sugary foods-- she reports she does NOT have DM and review of labs in current chart do no support diagnosis of DMlab recheck today Eczema 70909528 L30.9 treatment -- hydration/ moisturize r is reviewed and steroid cream sparingly- - and to call if not better in 2 weeks Long-term drug therapy 565514234 Z79.899 recheck the kidney testing and liver today [id number] Ely Butler MD [facility] [address] [facility] [address] [facility] [place] [address] 06/24/2022 11:58:59 06/25/2022 10:03:15 Type 2 diabetes mellitus 27150359 E11.9 I encouraged she stay away from sugary foods-- she reports she does NOT have DM and review of labs in current chart do no support diagnosis of DMlab recheck today Chronic ki dney disease stage 3 491769628 N18.31 recheck was done and kidney function November Pure hypercholesterolemia 335224638 E78.00 cont to take your cholestero l med-- lab today fasting Essential hypertension 60688036 I10 low salt diet and exercise-- dose increase of the BP med and will follow up in 6 months Onychomycosis 515929144 B35.1 Administra tion of diphtheria and tetanus vaccine 15849735 Z23 [id number] Ely Butler MD [facility] [address] [place] [address] 12/29/2022 13:51:07 12/29/2022 17:13:10 Adult health examination 655580402 Z00.00 Health Risk Assessment collected and reviewed Administra tion of influenza vaccine 94796323 Z23 Administra tion of pneumococcal vaccine 51043315 Z23 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 Chronic ki dney disease stage 3 373331002 N18.31 recheck was done and kidney function November Pure hypercholesterolemia 237379714 E78.00 cont to take your cholestero l med-- lab today fasting [id number] Ely Butler MD [facility] [address] [place] [address] 06/29/2023 14:41:37 06/30/2023 09:55:40 Chronic kidney disease stage 3 608273012 N18.31 recheck was done and kidney function November 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 538935005 I69.820 spouse helped wtih interview Essential hypertension 11859447 I10 Impaired g lucose tolerance 1276903 R73.03 Hypercholesterolemia 136 11906 E78.00 Long-term drug therapy 871713965 Z79.899 recheck the kidney testing and liver today [id number] Ely Butler MD [facility] [address] [place] [address] 02/16/2024 11:59:32 02/17/2024 10:03:40 Pure hypercholesterolemia 922172960 E78.00 cont to take your cholestero l med-- lab today fasting Essential hypertension 66100757 I10 take med as soon as leaving here and check BP in one hour to assure BP is better once meds are taken Impaired g lucose tolerance 9613791 R73.03 will check for DM II Long-term drug therapy 745104002 Z79.899 recheck the kidney testing and liver today as well as anemia/ WBC and platelet check Administra tion of influenza vaccine 59580753 Z23 advised and agrees to HD FLU SHOT since successful in getting this shot last year [id number] Ely Butler MD [facility] [address] [facility] [address] [place] [address] 03/14/2024 11:23:28 03/15/2024 10:06:54 Essential hypertension 93301389 I10 dose change of ALTACE / RAMPRIL to 10 mg daily---co ntinue the beta jocelin ( metoprolol 50 mg daily)-- not adjusted due to heart rate today- continue spironlact one 50 mg BID -will recheck BP is three months Increased stress 5242145 4 Z73.3 the increase of her stress is due to her spouse in the hospital and rehab which can impact BP -- follow up as planned [id number] Ely Butler MD [facility] [address] [facility] [address] [facility] [place] [address] 06/06/2024 11:22:24 06/07/2024 10:21:00 Essential hypertension 42389469 I10 great-- no med change today- no refills are needed per son and recheck with annual wellness visit in 6 months History of anemia 213823 002 Z86.2 will check labs for ANEMIA and will check labs today [id number] Ely Butler MD [facility] [address] [facility] [address] [facility] [place] [address] 07/31/2024 10:10:54 08/01/2024 11:17:27 Grief finding 584414276 F43.20 Will refill- only using PRN and do not recommend exterminator helper useFamily agrees - using 0.5 tablets if not for sleep Anemia 151447118 D64.9 UA fecal occult ordered and refer to GIChronica lly low hgb w/ slightly lower per last check Hearing difficulty 14686 0000 H91.93 Hematoma 387953614 T14.8 XXA Right arm bruise - healing well no further action needed 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 Requesting referral, but no specific complaints Nail deformity 108552840 L60.8 Requesting referral for maintence Essential hypertension 72135411 I10 Slightly high but for her age okay- no medication adjustment at this time Hyperlipidemia 00185364 E78.49 Since getting labs checked okay for annual lipid check Folic acid deficiency 19 0413884 E53.8 Due for recheck after starting folate tab a few months ago Prediabetes 706918192 R7 3.03 Recheck a1c Health Concerns Section Related Observation LastModified by Organization Detai ls LastModified Time None Recorded Concern Status LastModified by Organization Details LastModified Time None Recorded Advance Directives Directive N: Payers Insurance Date Sequence Insurance Name Policy Number Policy Mathews Covered Member ID Mathews Member ID Guarantor Name 07/31/2024 2 [place] Kinga A Richi [id number] [place] [employer] 07/31/2024 1 [employer] (MEDICARE REPLACEMENT/ ADVANTAGE - HMO) [id number] [employer] [id number] [employer] 07/31/2024 1 [employer] (MEDICARE REPLACEMENT/ ADVANTAGE - HMO) [id number] [employer] [id number] Kinga A Richi 07/31/2024 1 [facility] (MEDICARE REPLACEMENT HMO) [id number] [employer] [id number] [employer] Notes Date Note Type Note Provider Name and Address Organization Details Recorded Time 4 text/html Hypertension F/UReported bypatient.Associated Symptoms:no dizziness; no lightheadedness; no chest pain; no shortness of breath; no palpitations; no edema; no calf pain with exertion Lifestyle:limiting/avoiding salt;not exercising regularly Medications:taking medications as directed; no side effects from medicationNotes:wiht her last visit -- she had a cholesterol check with readings very high-- here for follow up Ely Butler MD Attn: Accounting,[address] [place], [address], [facility] 06/29/2023 16:17:39 4 text/html Diabetes F/UReported bypatient.Labs:last A1C result: 5.9; 07/07/22 Context:taking aspirin daily; not missing doses of medications; no side effects from medications;not seeing eye doctor yearly;not checking feet regularly Associated Symptoms:no weight gain; no weight loss; no dizziness; no sweats; no headaches; no confusion; no increased thirst; no increased urination; no blurred vision; no numbness of feet; no calluses on feet;increased appetiteHyperlipidemiaRepor bela bypatient.Current Therapy:currently taking: (atorvastatin 80 mg); last cholesterol level: (300); last LDL level: (207); last triglyceride level: (99); last HDL level: (70); last non HDL level: (230); 12/29/22 Compliance:does not exercise Complications:no coronary artery disease; no peripheral artery disease; no cardiovascular disease Risk Factors:hypertensionHyperte nsion F/UReported bypatient.Associated Symptoms:no dizziness; no lightheadedness; no chest pain; no shortness of breath; no palpitations; no edema; no calf pain with exertion Lifestyle:not exercising regularly;high salt intake Medications:taking medications as directed; no side effects from medicationNotes:she has not taken her medication for BP today and is anxious since her is ill and in the hospital Ely Butler MD Attn: Accounting,[address] [place] [address], [phone], [facility] [place] 02/16/2024 17:28:22 5 text/html Hypertension F/UReported bypatient.Associated Symptoms:no dizziness; no lightheadedness; no chest pain; no shortness of breath; no palpitations; no edema; no calf pain with exertion Lifestyle:limiting/avoiding salt;not exercising regularly Medications:taking medications as directed; no side effects from medication Ely Butler MD Attn: Accounting,[address] [place], [address], [facility] [place] 03/14/2024 16:51:59 5 text/html Hypertension F/UReported bypatient.Associated Symptoms:no dizziness; no lightheadedness; no chest pain; no shortness of breath; no palpitations; no edema; no calf pain with exertion Lifestyle:limiting/avoiding salt;not exercising regularly Medications:taking medications as directed; no side effects from medicationNotes:at last OV she had a dose change of ALTACE / RAMPRIL to 10 mg daily---was advised to continue the beta jocelin ( metoprolol 50 mg daily)-- not adjusted due to heart rate today- and advised to continue spironolactone 50 mg BID-- she is here for BP recheck Ely Butler MD Attn: Accounting,[address] [facility], [place], [address], [facility] [place] 06/06/2024 11:46:37 5 text/html Rash/Skin LesionReported bypatient.Location:feet (toe nails) Quality:painful;red(discolo red);swollen Severity:moderate Duration:noticed within the past week Context:no new detergents or skin products; no one else with similar rash; not scratching; Pts family states that pt has been walking around with no shoes just not caring about anything since her has passed. Pts family states that she has decoloration in her toe nails and they hurt. Pts family would also like to discuss getting referral to professional nursing assistant preferably dr renan gallo. Associated Symptoms:no fever; no cold symptoms; no nausea; no vomiting; no diarrhea; no urinary symptoms; no chills; no fatigue; no change in weight Treatment History:no history of treatment Pt here today with son in law and his girlfriend for general eval. Patients's unexpectedly last week and pt has been a mess since. Dr Butler prescribed xanax TID for acute grief - they have only been using this as needed and has not had to take 3 times a day. Family describes pt as having severe crying and screaming episodes which can occur in public since Miltons passing. The is coming up this weekend. Apparently there has been some feuding between patients children and son in law over who is taking over Kinga's care now that Fred has passed (he took care of her). They are here today to go ahead some general health concerns as well.-would like xanax refill ( is coming up this weekend)-pt also has some bruising on her left arm in location of where she holds her purse - improving but just want it documented-pt BP has been high and very stressed due to passing-hearing screening (pt reports she does have trouble hearing)-dentist referral-Pts family would like to further discuss with provider how patient has been acting and the concerns they have since the loss of her . Pts family would like to discuss home health for pts hygiene, cooking and cleaning as well. family prefers morning help. DESTINY Garcia Attn: Accounting,[address] [place], [address], [facility] [place] 07/31/2024 16:28:29 OBGyn Episode No OBEpisode recorded.
--- OUTSIDE RECORDS SUMMARY | 2024-08-13 13:41 | XMS_ITS | Encounter Summary ---
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 Historical Provider Final Res ult documented in this encounter Visit Diagnoses Not on filedocumented in this encounter Care Teams Media Consultant Relationship Specialty Start Date End Date Ely Santo MD [address] [place] [address] PCP - General 05/16/20 documented as of this encounter
--- OUTSIDE RECORDS SUMMARY | 2024-08-13 13:41 | XMS_ITS | Encounter Summary ---
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 Historical Provider Final Res ult documented in this encounter Visit Diagnoses Not on filedocumented in this encounter Care Teams Bottle Tester Relationship Specialty Start Date End Date Ely Santo MD [address] [place] [address] PCP - General 05/16/20 documented as of this encounter
== END 2024-08-13 12:49 | disposition home or self-care (01) ==
LOC: ANHAUDIO 12:51
PROVIDERS: PCP Physician Assistant; Visit Provider Physician Assistant
DX: H90.3 Sensorineural hearing loss, bilateral (principal)
CPT/HCPCS: 92553; 92555; 92567